=== PATIENT | female | born 1990 | race Caucasian/White ===

== ENCOUNTER 2017-09-12 19:35 | Emergency (ER) | payer MEDICAID ==
[~2017-09-12] VITALS: Ht 162.6 cm; Wt 72.6 kg
[2017-09-12 20:01] VITALS: BP_SYST 124
[2017-09-12 21:28] VITALS: BP_SYST 120
== END 2017-09-12 21:27 | disposition home or self-care (01) ==
LOC: SED 19:35
DX: S90.862A Insect bite (nonvenomous), left foot, initial encounter (principal); S90.861A Insect bite (nonvenomous), right foot, initial encounter; S60.562A Insect bite (nonvenomous) of left hand, initial encounter; S60.561A Insect bite (nonvenomous) of right hand, initial encounter; L53.8 Other specified erythematous conditions; Z90.49 Acquired absence of other specified parts of digestive tract; Z91.018 Allergy to other foods; W57.XXXA Bitten or stung by nonvenomous insect and other nonvenomous arthropods, initial encounter; Y93.89 Activity, other specified; Y92.89 Other specified places as the place of occurrence of the external cause; Y99.8 Other external cause status
CPT/HCPCS: 99283

== ENCOUNTER 2018-04-07 11:04 | Emergency (ER) | payer MEDICAID, OTHER ==
[~2018-04-07] VITALS: Ht 162.6 cm; Wt 72.6 kg
[2018-04-07 11:18] VITALS: BP_SYST 122
--- NOTE | 2018-04-07 11:18 | NUR ---
Patient to ER bed 08 to gown for evaluation. Side rails up.
--- NOTE | 2018-04-07 11:20 | NUR ---
Pt brought by famiy member,A&Ox4, pt presents to ER with redness and itching on R eye, denies blurred vision, skin pink and warm, cap refill <3, VS WNL.
--- NOTE | 2018-04-07 11:35 | NUR ---
ER at bedside examining patient.
[2018-04-07 11:55] VITALS: BP_SYST 118
--- NOTE | 2018-04-07 11:57 | NUR ---
Patient given written and verbal discharge instructions and verbalizes understanding. ER MD discussed with patient the results and treatment provided. Patient in stable condition. ID arm band removed. Rx of Alaway and Maxitrol given. Patient educated on pain management and to follow up with PMD. Pain Scale 0/10 . Opportunity for questions provided and answered. Medication side effect fact sheet provided.
== END 2018-04-07 11:57 | disposition home or self-care (01) ==
LOC: SED 11:04
DX: H10.11 Acute atopic conjunctivitis, right eye (principal); Z91.018 Allergy to other foods
CPT/HCPCS: 99283

== ENCOUNTER 2023-09-27 10:29 | Emergency (ER) | payer MEDICAID, OTHER ==
[~2023-09-27] VITALS: Ht 165.1 cm; Wt 86.2 kg
[2023-09-27 10:30] VITALS: BP_SYST 121; PULSE 126; RESP 18; TEMP 100.3; O2SAT 98
[2023-09-27] MEDS: ACETAMINOPHEN 500 MG TABLET PO ONE (11:02)
[2023-09-27 12:13] LABS: STREPTOCOCCUS A SCREEN (RAPID) NEGATIVE (NEGATIVE)
[2023-09-27] MEDS ORDERED: IBUP-1969 PO (13:12)
[2023-09-27] MEDS ORDERED: PRED20TA PO (13:12)
[2023-09-27 14:00] LABS: MONOTEST NEGATIVE (NEGATIVE)
[2023-09-27 14:02] VITALS: BP_SYST 121; PULSE 96; RESP 18; TEMP 98.8; O2SAT 98
== END 2023-09-27 13:55 | disposition home or self-care (01) ==
LOC: SED 10:29
DX: J02.9 Acute pharyngitis, unspecified (principal); R50.9 Fever, unspecified; Z91.018 Allergy to other foods
CPT/HCPCS: 36415; 81025; 86308; 86403; 87081; 99283

== ENCOUNTER 2023-09-30 15:58 | Emergency (ER) | payer MEDICAID ==
[~2023-09-30] VITALS: Ht 165.1 cm; Wt 86.2 kg
[~2023-09-30 15:58] MED LIST: IBUP-1969 PO; PRED20TA PO
[2023-09-30 16:12] VITALS: BP_SYST 129; PULSE 120; RESP 18; TEMP 99.6; O2SAT 97
[2023-09-30 16:30] VITALS: BP_SYST 129; PULSE 120; RESP 18; TEMP 99.6; O2SAT 97
== END 2023-09-30 18:30 | disposition left against medical advice (07) ==
LOC: SED 15:58
DX: H92.03 Otalgia, bilateral (principal); R50.9 Fever, unspecified; R42 Dizziness and giddiness; J02.9 Acute pharyngitis, unspecified; R51.9 Headache, unspecified; Z53.21 Procedure and treatment not carried out due to patient leaving prior to being seen by health care provider